=== PATIENT | female | born 1975 | race Caucasian/White ===

== ENCOUNTER 2017-02-01 20:09 | Emergency (ER) | payer MEDICAID ==
[2017-02-01 21:03] VITALS: BP 115/85
== END 2017-02-01 21:03 | disposition home or self-care (01) ==
LOC: ED 20:09
DX: J02.9 Acute pharyngitis, unspecified (principal)
CPT/HCPCS: J0696; J1100

== ENCOUNTER 2017-05-28 08:21 | Emergency (ER) | payer MEDICAID ==
[~2017-05-28] VITALS: Ht 170.2 cm; Wt 81.9 kg
[2017-05-28 09:02] VITALS: Ht 170.2 cm; Wt 81.9 kg
[2017-05-28 11:12] VITALS: BP 120/75
== END 2017-05-28 11:12 | disposition home or self-care (01) ==
LOC: ED 08:21
DX: B34.9 Viral infection, unspecified (principal); I10 Essential (primary) hypertension; Z91.02 Food additives allergy status
CPT/HCPCS: 87804